=== PATIENT | male | born 1980 | race Hispanic/Latino ===

== ENCOUNTER 2018-11-11 18:18 | Inpatient (IN) | payer SELFPAY ==
[~2018-11-11] VITALS: Ht 180.3 cm; Wt 116.2 kg
[2018-11-11 18:45] LABS: BASOPHILS % (AUTO) 1.3 % (0.0-5.0); EOSINOPHILS % (AUTO) 0.8 % (0.0-8.0); HEMATOCRIT 46.8 % (42-54); LYMPHOCYTES % (AUTO) 37.1 % (21.0-51.0); MEAN CORPUSCULAR HEMOGLOBIN 35.7 pg (27.0-33.0); MEAN CORPUSCULAR HGB CONC 34.8 g/dL (32.0-36.0); MEAN CORPUSCULAR VOLUME 102.5 fL (79-99); MONOCYTES % (AUTO) 8.9 % (3.0-13.0); NEUTROPHILS % (AUTO) 51.9 % (40.0-77.0); NUCLEATED RED BLOOD CELLS 0.1 % (0.0-0.19); PLATELET COUNT (AUTO) 340 K/uL (130-400); RED BLOOD CELL COUNT(AUTO) 4.56 MIL/uL (4.50-6.20); RED CELL DISTRIBUTION WIDTH 13.5 % (11.0-15.5); WHITE BLOOD COUNT (AUTO) 11.1 K/uL (4.8-10.8)
[2018-11-11] MEDS ORDERED: KETOROLAC TROMETHAMINE 30MG/ML ONE (18:46)
[2018-11-11] MEDS ORDERED: MORPHINE SULFATE 4 MG/1ML SYG ONE ×2 (18:46→19:34)
[2018-11-11 18:58] LABS: CREATININE 0.8 mg/dL (0.5-1.5); POTASSIUM 3.2 mmol/L (3.5-5.1)
[2018-11-11 19:02] LABS: ALBUMIN 3.7 g/dL (3.5-5.0); BILIRUBIN,TOTAL 0.8 mg/dL (0.2-1.0); TOTAL PROTEIN, SERUM 8.4 g/dL (6.0-8.3)
[2018-11-11 19:45] LABS: APPEARANCE,URINE Clear (CLEAR); BILIRUBIN,URINE Negative (NEGATIVE); COLOR,URINE Yellow (YELLOW); GLUCOSE, URINE (UA) Negative (NEGATIVE); KETONES,URINE Negative (NEGATIVE); LEUKOCYTE ESTERASE ,URINE Negative (NEGATIVE); NITRATE,URINE Negative (NEGATIVE); OCCULT BLOOD,URINE Negative (NEGATIVE); PROTEIN,URINE Negative (NEGATIVE); UROBILINOGEN,URINE 0.2 mg/dL (0.2-1.0)
[2018-11-11] MEDS ORDERED: LIDOCAINE HCL-MPF 1% 2ML VIAL IVP PRN (19:45)
[2018-11-11] MEDS ORDERED: M.V.I. IV [ADULT] 10 ML, FOLIC ACID 1 MG, THIAMINE HCL 100 MG in SODIUM CHLORIDE 0.9% 1... IV SCH (19:45)
[2018-11-11] MEDS ORDERED: CHLORDIAZEPOXIDE HCL 25 MG CAP PO PRN ×4 (19:45)
[2018-11-11] MEDS ORDERED: PROMETHAZINE HCL 25 MG TABLET PO PRN (19:45)
[2018-11-11] MEDS ORDERED: POTASSIUM CHLORIDE 20MEQ/100ML 100 ML IV PRN (19:45)
[2018-11-11] MEDS ORDERED: ACETAMINOPHEN EXTRA STRENGTH 500 MG TABLET PO PRN (19:45)
[2018-11-11] MEDS ORDERED: LORAZEPAM 2 MG/ML 1 ML VIAL IVP PRN ×4 (19:45)
[2018-11-11] MEDS ORDERED: ONDANSETRON HCL 4 MG/2 ML VIAL IV PRN ×2 (19:45)
[2018-11-11] MEDS ORDERED: NITROGLYCERIN 0.4 MG SL TAB SL PRN (19:45)
[2018-11-11] MEDS: LACTATED RINGERS 1000ML 1,000 ML IV SCH (19:45)
[2018-11-11] MEDS ORDERED: HYDRALAZINE HCL 20 MG/ML VIAL IV PRN (20:00)
[2018-11-11 20:30] LABS: AMPHET/METH SCREEN,URINE NEGATIVE (NEGATIVE); BARBITURATE SCREEN, URINE NEGATIVE (NEGATIVE); BENZODIAZEPINES SCREEN,URINE NEGATIVE (NEGATIVE); CANNABINOID SCREEN,URINE POSITIVE (NEGATIVE); COCAINE SCREEN,URINE NEGATIVE (NEGATIVE); OPIATE SCREEN,URINE NEGATIVE (NEGATIVE); PHENCYCLIDINE SCREEN,URINE NEGATIVE (NEGATIVE)
[2018-11-11] MEDS: FAMOTIDINE/PF 20 MG/2 ML VIAL IV SCH (21:00)
[2018-11-11] MEDS ORDERED: THIAMINE HCL 100 MG/ML 2ML VIAL ONE (21:22)
[2018-11-11] MEDS ORDERED: FAMOTIDINE/PF 20 MG/2 ML VIAL IV ONE (21:27)
[2018-11-11 21:32] LABS: MAGNESIUM 1.8 mg/dL (1.80-2.40); PHOSPHORUS 2.7 mg/dL (2.5-4.9)
[2018-11-12 02:11] VITALS: BP 160/102
[2018-11-12] MEDS: MAGNESIUM 2GM PREMIX 50ML 50 ML IV PRN ×2 (02:28→07:02)
[2018-11-12] MEDS: MORPHINE SULFATE 2 MG/ML 1ML SYG IV PRN ×2 (03:29→09:38)
[2018-11-12] MEDS: LACTATED RINGERS 1000ML 1,000 ML IV SCH ×3 (03:45→13:29)
[2018-11-12 05:09] LABS: HEMATOCRIT 45.5 % (42-54); MEAN CORPUSCULAR HEMOGLOBIN 36.9 pg (27.0-33.0); MEAN CORPUSCULAR HGB CONC 35.8 g/dL (32.0-36.0); MEAN CORPUSCULAR VOLUME 103.1 fL (79-99); NUCLEATED RED BLOOD CELLS 0.1 % (0.0-0.19); PLATELET COUNT (AUTO) 281 K/uL (130-400); RED BLOOD CELL COUNT(AUTO) 4.41 MIL/uL (4.50-6.20); RED CELL DISTRIBUTION WIDTH 13.5 % (11.0-15.5); WHITE BLOOD COUNT (AUTO) 9.4 K/uL (4.8-10.8)
[2018-11-12 05:20] VITALS: BP 149/89
[2018-11-12 05:32] LABS: BAND NEUTROPHILS % (MANUAL) 2 % (0-2); BASOPHILS % (MANUAL) 2 % (0-2); LYMPHOCYTES % (MANUAL) 17 % (22-44); MAN.DIFF COMMENT-IMPRESSION MANUAL DIFFERENTIAL; MONOCYTES % (MANUAL) 7 % (2-9); SEGMENTED NEUTROPHILS % 72 % (40-70)
[2018-11-12 05:33] LABS: PLATELET MORPHOLOGY COMMENT ADEQUATE
[2018-11-12 05:41] LABS: ALBUMIN 3.5 g/dL (3.5-5.0); BILIRUBIN,TOTAL 1.2 mg/dL (0.2-1.0); CREATININE 0.8 mg/dL (0.5-1.5); MAGNESIUM 1.9 mg/dL (1.80-2.40); PHOSPHORUS 2.3 mg/dL (2.5-4.9); POTASSIUM 3.7 mmol/L (3.5-5.1); TOTAL PROTEIN, SERUM 8.5 g/dL (6.0-8.3)
[2018-11-12] MEDS ORDERED: M.V.I. IV [ADULT] 10 ML, FOLIC ACID 1 MG, THIAMINE HCL 100 MG in SODIUM CHLORIDE 0.9% 1... IV SCH ×2 (07:51→19:45)
[2018-11-12 08:00] VITALS: BP 145/89
[2018-11-12] MEDS: FAMOTIDINE/PF 20 MG/2 ML VIAL IV SCH ×2 (09:30→20:57)
[2018-11-12] MEDS: ENOXAPARIN SODIUM 30 MG/0.3 ML SQ SCH (09:30)
[2018-11-12 12:00] VITALS: BP 157/95
[2018-11-12] MEDS: MORPHINE SULFATE 4 MG/1ML SYG IV PRN ×2 (13:28→21:00)
--- NOTE | 2018-11-12 14:52 | NUR ---
INITIAL: Met with pt this afternoon to discuss dcp. Pt states that he is currently living with his parents and helping to take care of his mother who has Alzheimers. Pt states that he is independent w ambulation and ADLs. He does not drive and usually gets a ride where needed. Pt states that he feels safe and comfortable to [place] home at [place]. Provided him w community resource information, including AA. discussed importance of decreasing alcohol intake. Low income packet provided as well. Will continue to follow and wait for Md recommendations. Addendum: 11/12/18 at 1456 by MILLY SCOTT Amended: Links added.
[2018-11-12 16:00] VITALS: BP 144/73
[2018-11-12 19:05] VITALS: BP 155/92
[2018-11-13] VITALS (7 sets, daily range): BP systolic 126–160; BP diastolic 76–95
[2018-11-13] MEDS: MORPHINE SULFATE 2 MG/ML 1ML SYG IV PRN (03:59)
[2018-11-13] MEDS: LACTATED RINGERS 1000ML 1,000 ML IV SCH ×3 (04:49→21:29)
[2018-11-13 05:21] LABS: HEMATOCRIT 44.6 % (42-54); MEAN CORPUSCULAR HGB CONC 34.9 g/dL (32.0-36.0); MEAN CORPUSCULAR VOLUME 103.2 fL (79-99); PLATELET COUNT (AUTO) 293 K/uL (130-400); RED BLOOD CELL COUNT(AUTO) 4.32 MIL/uL (4.50-6.20); RED CELL DISTRIBUTION WIDTH 13.5 % (11.0-15.5); WHITE BLOOD COUNT (AUTO) 7.8 K/uL (4.8-10.8)
[2018-11-13 05:38] LABS: BILIRUBIN,DIRECT 0.4 mg/dL (0.0-0.3); BILIRUBIN,TOTAL 1.9 mg/dL (0.2-1.0); CREATININE 0.9 mg/dL (0.5-1.5); POTASSIUM 3.5 mmol/L (3.5-5.1); TOTAL PROTEIN, SERUM 7.7 g/dL (6.0-8.3)
[2018-11-13] MEDS: FAMOTIDINE/PF 20 MG/2 ML VIAL IV SCH ×2 (09:28→21:29)
[2018-11-13] MEDS: ENOXAPARIN SODIUM 30 MG/0.3 ML SQ SCH (09:29)
[2018-11-13] MEDS: MORPHINE SULFATE 4 MG/1ML SYG IV PRN ×2 (11:48→18:01)
[2018-11-13] MEDS ORDERED: PHARMACY COMMUNICATION MISC SCH (20:00)
[2018-11-13] MEDS ORDERED: M.V.I. IV [ADULT] 10 ML, FOLIC ACID 1 MG, THIAMINE HCL 100 MG in SODIUM CHLORIDE 0.9% 1... IV SCH (20:03)
[2018-11-14 01:20] VITALS: BP 133/86
[2018-11-14] MEDS: LACTATED RINGERS 1000ML 1,000 ML IV SCH ×2 (03:45→11:45)
[2018-11-14 04:00] VITALS: BP 133/86
[2018-11-14 05:43] LABS: BASOPHILS % (AUTO) 0.7 % (0.0-5.0); EOSINOPHILS % (AUTO) 2.9 % (0.0-8.0); HEMATOCRIT 45.3 % (42-54); LYMPHOCYTES % (AUTO) 34.6 % (21.0-51.0); MEAN CORPUSCULAR HEMOGLOBIN 35.8 pg (27.0-33.0); MEAN CORPUSCULAR HGB CONC 34.2 g/dL (32.0-36.0); MEAN CORPUSCULAR VOLUME 104.5 fL (79-99); MONOCYTES % (AUTO) 9.1 % (3.0-13.0); NEUTROPHILS % (AUTO) 52.7 % (40.0-77.0); PLATELET COUNT (AUTO) 276 K/uL (130-400); RED BLOOD CELL COUNT(AUTO) 4.34 MIL/uL (4.50-6.20); RED CELL DISTRIBUTION WIDTH 13.4 % (11.0-15.5); WHITE BLOOD COUNT (AUTO) 7.8 K/uL (4.8-10.8)
[2018-11-14 05:59] LABS: ALBUMIN 2.9 g/dL (3.5-5.0); BILIRUBIN,TOTAL 1.5 mg/dL (0.2-1.0); POTASSIUM 3.6 mmol/L (3.5-5.1); TOTAL PROTEIN, SERUM 7.7 g/dL (6.0-8.3)
[2018-11-14] MEDS: MORPHINE SULFATE 4 MG/1ML SYG IV PRN (06:39)
[2018-11-14 07:30] VITALS: BP 123/73
[2018-11-14] MEDS: FAMOTIDINE/PF 20 MG/2 ML VIAL IV SCH (09:12)
[2018-11-14] MEDS: ENOXAPARIN SODIUM 30 MG/0.3 ML SQ SCH (09:15)
[2018-11-14 11:00] VITALS: BP 137/94
[2018-11-14] MEDS ORDERED: TYL3 PO (14:16)
--- NOTE | 2018-11-14 14:50 | NUR ---
Nutrition intervention: Nutrition notification for alcohol use. Pt with new diagnosis of pancreatitis diet.JOHAN provided pt with pancreatitis diet education, printed materials provided and reviewed. Pt reports being a heavy drinker. Pt with no nutritional questions or concerns. Please consult RD as nutrition concerns arise. Recommendations: When medically feasible, advance diet therapy to soft, low fat diet therapy. Monitor po intake and tolerance. Please consult RD as nutrition concerns arise. Addendum: 11/14/18 at [address] Amended: Links added.
--- NOTE | 2018-11-14 18:45 | NUR ---
DISCHARGE INSTRUCTIONS GIVEN VIA TEACH BACK ALONG WITH FOLLOW-UP RECOMMENDATION AND PRESCRIPTION VERBALIZATION OF UNDERSTANDING RECEIVED. IV ACCESS REMOVED WITHOUT COMPLICATION. PATIENT IS TO LEAVE THE UNIT IN STABLE CONDITION WITH FAMILY PRESENT AT THE BEDSIDE DURING DISCHARGE.
--- NOTE | 2018-11-14 19:26 | NUR ---
LEFT THE UNIT IN STABLE CONDITION VIA W/C.
== END 2018-11-14 19:30 | disposition home or self-care (01) | DRG 440 ==
LOC: EDH 18:18 → EDHIP 18:19 → 3DH 11-12 01:40
PROVIDERS: ADMIT Internal Medicine; ATTEND Internal Medicine
DX: K85.90 Acute pancreatitis without necrosis or infection, unspecified (principal); F10.129 Alcohol abuse with intoxication, unspecified; I10 Essential (primary) hypertension; E87.6 Hypokalemia; Z68.34 Body mass index [BMI] 34.0-34.9, adult; E66.9 Obesity, unspecified; Y90.5 Blood alcohol level of 100-119 mg/100 ml; K76.0 Fatty (change of) liver, not elsewhere classified; Z83.3 Family history of diabetes mellitus; Z82.49 Family history of ischemic heart disease and other diseases of the circulatory system
CPT/HCPCS: 36415; 74176; 80048; 80053; 80061; 80076; 80305; 81003; 82150; 83690; 83735; 84100; 84484; 85025; 85027; 87040; 93005; G0378; G0480; J1650; J1885; J2270; J3411; J3475; J3480; J3490; J7030; J7120

== ENCOUNTER 2018-11-28 21:20 | Inpatient (IN) | payer SELFPAY ==
[~2018-11-28] VITALS: Ht 180.3 cm; Wt 114.7 kg
[~2018-11-28 21:20] MED LIST: TYL3 PO
[2018-11-28 21:39] LABS: BASOPHILS % (AUTO) 0.7 % (0.0-5.0); EOSINOPHILS % (AUTO) 1.5 % (0.0-8.0); HEMATOCRIT 46.4 % (42-54); LYMPHOCYTES % (AUTO) 46.2 % (21.0-51.0); MEAN CORPUSCULAR HEMOGLOBIN 36.5 pg (27.0-33.0); MEAN CORPUSCULAR VOLUME 104.5 fL (79-99); MONOCYTES % (AUTO) 7.8 % (3.0-13.0); NEUTROPHILS % (AUTO) 43.8 % (40.0-77.0); NUCLEATED RED BLOOD CELLS 0.1 % (0.0-0.19); PLATELET COUNT (AUTO) 318 K/uL (130-400); RED BLOOD CELL COUNT(AUTO) 4.44 MIL/uL (4.50-6.20); RED CELL DISTRIBUTION WIDTH 13.5 % (11.0-15.5); WHITE BLOOD COUNT (AUTO) 10.6 K/uL (4.8-10.8)
[2018-11-28 21:47] LABS: APPEARANCE,URINE Clear (CLEAR); BILIRUBIN,URINE Negative (NEGATIVE); COLOR,URINE Yellow (YELLOW); GLUCOSE, URINE (UA) Negative (NEGATIVE); KETONES,URINE Negative (NEGATIVE); LEUKOCYTE ESTERASE ,URINE Negative (NEGATIVE); NITRATE,URINE Negative (NEGATIVE); OCCULT BLOOD,URINE Negative (NEGATIVE); PROTEIN,URINE Negative (NEGATIVE)
[2018-11-28 21:54] LABS: ALBUMIN 3.4 g/dL (3.5-5.0); BILIRUBIN,TOTAL 0.8 mg/dL (0.2-1.0); TOTAL PROTEIN, SERUM 8.1 g/dL (6.0-8.3)
[2018-11-28 21:55] LABS: AMPHET/METH SCREEN,URINE NEGATIVE (NEGATIVE); BARBITURATE SCREEN, URINE NEGATIVE (NEGATIVE); BENZODIAZEPINES SCREEN,URINE NEGATIVE (NEGATIVE); CANNABINOID SCREEN,URINE POSITIVE (NEGATIVE); COCAINE SCREEN,URINE NEGATIVE (NEGATIVE); OPIATE SCREEN,URINE NEGATIVE (NEGATIVE); PHENCYCLIDINE SCREEN,URINE NEGATIVE (NEGATIVE)
[2018-11-28 21:57] LABS: INR 1.07 (0.85-1.15); PARTIAL THROMBOPLASTIN TIME 27.6 SEC (26.3-35.5); PROTHROMBIN TIME 11.2 SEC (9.6-11.6)
[2018-11-28 21:58] LABS: POTASSIUM 2.6 mmol/L (3.5-5.1)
[2018-11-28] MEDS ORDERED: THIAMINE HCL 100 MG/ML 2ML VIAL ONE (22:25)
[2018-11-28] MEDS ORDERED: POTASSIUM CHLORIDE 20 MEQ ERTAB PO ONE (22:28)
[2018-11-28] MEDS: SODIUM CHLORIDE 0.9% 1000ML 1,000 ML IV SCH (23:27)
[2018-11-28] MEDS ORDERED: LIDOCAINE HCL-MPF 1% 2ML VIAL IVP PRN (23:30)
[2018-11-28] MEDS ORDERED: LORAZEPAM 2 MG/ML 1 ML VIAL IVP PRN ×4 (23:30)
[2018-11-28] MEDS ORDERED: ONDANSETRON HCL 4 MG/2 ML VIAL IV PRN (23:30)
[2018-11-28] MEDS ORDERED: NITROGLYCERIN 0.4 MG SL TAB SL PRN (23:30)
[2018-11-28] MEDS ORDERED: PROMETHAZINE HCL 25 MG TABLET PO PRN (23:30)
[2018-11-28] MEDS ORDERED: CHLORDIAZEPOXIDE HCL 25 MG CAP PO PRN ×4 (23:30)
[2018-11-28] MEDS ORDERED: POTASSIUM CHLORIDE 20MEQ/100ML 100 ML IV PRN (23:30)
[2018-11-28] MEDS ORDERED: ACETAMINOPHEN EXTRA STRENGTH 500 MG TABLET PO PRN (23:30)
[2018-11-28] MEDS ORDERED: MAGNESIUM 2GM PREMIX 50ML 50 ML IV PRN (23:30)
[2018-11-28 23:44] LABS: PHOSPHORUS 2.9 mg/dL (2.5-4.9)
[2018-11-29] MEDS ORDERED: SODIUM CHLORIDE 0.9% 1000ML 1,000 ML IV STA (00:11)
[2018-11-29] MEDS: PANTOPRAZOLE SODIUM 80 MG in SODIUM CHLORIDE 0.9% 100 ML IV SCH ×3 (01:00→18:17)
[2018-11-29] MEDS ORDERED: HYDRALAZINE HCL 20 MG/ML VIAL IV PRN (02:30)
[2018-11-29 06:13] LABS: BASOPHILS % (AUTO) 1.3 % (0.0-5.0); EOSINOPHILS % (AUTO) 3.7 % (0.0-8.0); HEMATOCRIT 44.7 % (42-54); LYMPHOCYTES % (AUTO) 51.2 % (21.0-51.0); MEAN CORPUSCULAR HEMOGLOBIN 35.5 pg (27.0-33.0); MEAN CORPUSCULAR VOLUME 104.5 fL (79-99); MONOCYTES % (AUTO) 8.2 % (3.0-13.0); NEUTROPHILS % (AUTO) 35.6 % (40.0-77.0); PLATELET COUNT (AUTO) 337 K/uL (130-400); RED BLOOD CELL COUNT(AUTO) 4.27 MIL/uL (4.50-6.20); RED CELL DISTRIBUTION WIDTH 13.2 % (11.0-15.5); WHITE BLOOD COUNT (AUTO) 6.8 K/uL (4.8-10.8)
[2018-11-29 06:31] LABS: BILIRUBIN,TOTAL 0.7 mg/dL (0.2-1.0); MAGNESIUM 1.9 mg/dL (1.80-2.40); PHOSPHORUS 2.8 mg/dL (2.5-4.9); POTASSIUM 3.6 mmol/L (3.5-5.1); TOTAL PROTEIN, SERUM 7.5 g/dL (6.0-8.3)
[2018-11-29 06:36] LABS: CREATINE KINASE, TOTAL 139 U/L (21-232); MYOGLOBIN 53 ng/mL (10-92); TROPONIN I < 0.04 ng/mL (0.00-0.06)
[2018-11-29] MEDS ORDERED: THIAMINE HCL 100 MG/ML 2ML VIAL ONE (08:01)
[2018-11-29] MEDS ORDERED: M.V.I. IV [ADULT] 10 ML VIAL IV ONE (08:02)
[2018-11-29] MEDS: M.V.I. IV [ADULT] 10 ML, FOLIC ACID 1 MG, THIAMINE HCL 100 MG in SODIUM CHLORIDE 0.9% 1... IV SCH (09:00)
--- NOTE | 2018-11-29 10:10 | NUR ---
ADMISSION. FROM ER. PT AAO X 3 ,REVIEW . CARE ,AND PT . NOTED . OFFER NO C/O OF CHEST PAIN, PT WAS PLACED ON TELE MONITORING ,,, HOB UP. CAME IN WITH A BANANA BAG ,AND PROTONIX DRIP. . SET UP RATE PER ORDERS .. CALL LIGHT IN REACH..
[2018-11-29 10:27] LABS: CREATINE KINASE, TOTAL 143 U/L (21-232); MYOGLOBIN 32 ng/mL (10-92); TROPONIN I < 0.04 ng/mL (0.00-0.06)
[2018-11-29 11:00] VITALS: BP 152/86
--- NOTE | 2018-11-29 11:29 | NUR ---
ADIEL Reinaldo met with pt who states he has trailer in back yard of his father's home. Father Andre Boyer [phone], daughter Marely Crowe [phone]. Pt is self employed mechanical system technician, independent of ADLS, no DME or in home care services. Pt is seens at [facility] for care and meds. Denies dc needs, plan is home at ok Addendum: 11/29/18 at 1132 by LAURITA VICENTE Amended: Links added.
[2018-11-29] MEDS: SODIUM CHLORIDE 0.9% 1000ML 1,000 ML IV SCH ×2 (12:47→18:17)
[2018-11-29 20:44] VITALS: BP 163/99
[2018-11-29] MEDS: KETOROLAC TROMETHAMINE 15MG/ML IV PRN (22:14)
[2018-11-30] VITALS (19 sets, daily range): BP systolic 114–151; BP diastolic 72–97
[2018-11-30] MEDS: SODIUM CHLORIDE 0.9% 1000ML 1,000 ML IV SCH ×3 (00:52→15:27)
[2018-11-30 04:31] LABS: MEAN CORPUSCULAR HEMOGLOBIN 36.1 pg (27.0-33.0); MEAN CORPUSCULAR HGB CONC 34.4 g/dL (32.0-36.0); MEAN CORPUSCULAR VOLUME 104.8 fL (79-99); PLATELET COUNT (AUTO) 280 K/uL (130-400); RED CELL DISTRIBUTION WIDTH 13.3 % (11.0-15.5); WHITE BLOOD COUNT (AUTO) 8.5 K/uL (4.8-10.8)
[2018-11-30 04:55] LABS: POTASSIUM 3.9 mmol/L (3.5-5.1)
[2018-11-30] MEDS: PANTOPRAZOLE SODIUM 80 MG in SODIUM CHLORIDE 0.9% 100 ML IV SCH ×2 (07:00→07:56)
[2018-11-30] MEDS ORDERED: PROPOFOL 10 MG/ML 20ML VIAL IV ONE (07:00)
--- NOTE | 2018-11-30 07:45 | NUR ---
PT BACK FROM GI LAB, PT AAO X 3 NOTED NO C/O OF NAUSEA OR BLEEDING. POSTOP V/S STARTED , WITH CALL LIGHT IN REACH..
[2018-11-30] MEDS: LOSARTAN 50 MG TABLET PO SCH (12:35)
[2018-11-30] MEDS: HYDROCHLOROTHIAZIDE 25 MG TABLET PO SCH (12:35)
[2018-11-30] MEDS: KETOROLAC TROMETHAMINE 15MG/ML IV PRN (12:36)
[2018-11-30] MEDS: M.V.I. IV [ADULT] 10 ML, FOLIC ACID 1 MG, THIAMINE HCL 100 MG in SODIUM CHLORIDE 0.9% 1... IV SCH (15:41)
[2018-12-01 00:42] VITALS: BP 119/78
[2018-12-01] MEDS: KETOROLAC TROMETHAMINE 15MG/ML IV PRN (03:20)
[2018-12-01 04:17] VITALS: BP 133/79
[2018-12-01 04:21] LABS: BASOPHILS % (AUTO) 0.8 % (0.0-5.0); EOSINOPHILS % (AUTO) 2.7 % (0.0-8.0); HEMATOCRIT 44.7 % (42-54); LYMPHOCYTES % (AUTO) 29.1 % (21.0-51.0); MEAN CORPUSCULAR HEMOGLOBIN 35.8 pg (27.0-33.0); MEAN CORPUSCULAR HGB CONC 34.6 g/dL (32.0-36.0); MEAN CORPUSCULAR VOLUME 103.6 fL (79-99); MONOCYTES % (AUTO) 9.2 % (3.0-13.0); NEUTROPHILS % (AUTO) 58.2 % (40.0-77.0); PLATELET COUNT (AUTO) 306 K/uL (130-400); RED BLOOD CELL COUNT(AUTO) 4.31 MIL/uL (4.50-6.20); RED CELL DISTRIBUTION WIDTH 13.1 % (11.0-15.5); WHITE BLOOD COUNT (AUTO) 9.3 K/uL (4.8-10.8)
[2018-12-01 04:45] LABS: POTASSIUM 3.4 mmol/L (3.5-5.1)
[2018-12-01 08:00] VITALS: BP 126/77
[2018-12-01] MEDS ORDERED: POTASSIUM CHLORIDE 20MEQ/100ML 100 ML IV PRN (08:00)
[2018-12-01] MEDS ORDERED: POTASSIUM CHLORIDE 20 MEQ ERTAB PO PRN (08:00)
[2018-12-01] MEDS ORDERED: LIDOCAINE HCL-MPF 1% 2ML VIAL IVP PRN (08:00)
[2018-12-01] MEDS ORDERED: POTASSIUM CHLORIDE 10% ELIXIR 20 MEQ/15 ML UDCUP PO PRN (08:00)
[2018-12-01] MEDS ORDERED: POTASSIUM CHLORIDE 20 MEQ ERTAB PO SCH (08:30)
[2018-12-01] MEDS ORDERED: PANTOPRAZOLE SODIUM 40 MG TABLET.DR PO SCH (09:00)
[2018-12-01] MEDS: LOSARTAN 50 MG TABLET PO SCH (09:53)
[2018-12-01] MEDS: HYDROCHLOROTHIAZIDE 25 MG TABLET PO SCH (09:54)
[2018-12-01 12:00] VITALS: BP 152/95
--- NOTE | 2018-12-01 12:24 | NUR ---
PER DR. ACEVEDO OK TO D/C CANCEL BMP RX FOR BLOOD PRESSURE MEDICATIONS IN THE CHART
== END 2018-12-01 14:28 | disposition home or self-care (01) | DRG 377 ==
LOC: EDH 21:20 → EDHIP 21:21 → 4CH 11-29 10:10
PROVIDERS: ADMIT Internal Medicine; ATTEND Internal Medicine
PROC: 0DB98ZX Excision of Duodenum, Via Natural or Artificial Opening Endoscopic, Diagnostic (ICD-10-PCS; principal; 2018-11-30)
PROC: 0DB68ZX Excision of Stomach, Via Natural or Artificial Opening Endoscopic, Diagnostic (ICD-10-PCS; 2018-11-30)
PROC: 0DB38ZX Excision of Lower Esophagus, Via Natural or Artificial Opening Endoscopic, Diagnostic (ICD-10-PCS; 2018-11-30)
DX: K29.71 Gastritis, unspecified, with bleeding (principal); K85.20 Alcohol induced acute pancreatitis without necrosis or infection; E87.6 Hypokalemia; R07.89 Other chest pain; F10.229 Alcohol dependence with intoxication, unspecified; R79.89 Other specified abnormal findings of blood chemistry; Y90.8 Blood alcohol level of 240 mg/100 ml or more; F12.10 Cannabis abuse, uncomplicated; I10 Essential (primary) hypertension; E66.9 Obesity, unspecified; Z68.35 Body mass index [BMI] 35.0-35.9, adult; Z82.49 Family history of ischemic heart disease and other diseases of the circulatory system; Z83.3 Family history of diabetes mellitus; Z82.0 Family history of epilepsy and other diseases of the nervous system; Z80.9 Family history of malignant neoplasm, unspecified; Z71.41 Alcohol abuse counseling and surveillance of alcoholic
CPT/HCPCS: 36415; 43239; 71045; 80048; 80053; 80305; 81003; 82150; 82270; 82550; 83690; 83735; 83874; 84100; 84484; 85025; 85027; 85610; 85730; 88305; 93005; C9113; G0378; G0480; J1885; J2704; J3411; J3490; J7030

== ENCOUNTER 2022-09-26 21:40 | Emergency (ER) | payer OTHER ==
[~2022-09-26] VITALS: Ht 180.3 cm; Wt 138.9 kg
[2022-09-26 23:44] LABS: BASOPHILS % (AUTO) 0.5 % (0.0-5.0); EOSINOPHILS % (AUTO) 3.1 % (0.0-8.0); HEMATOCRIT 40.4 % (42-54); LYMPHOCYTES % (AUTO) 43.2 % (21.0-51.0); MEAN CORPUSCULAR HEMOGLOBIN 37.7 pg (27.0-33.0); MEAN CORPUSCULAR HGB CONC 34.7 g/dL (32.0-36.0); MEAN CORPUSCULAR VOLUME 108.9 fL (79-99); MONOCYTES % (AUTO) 10.3 % (3.0-13.0); NEUTROPHILS % (AUTO) 42.7 % (40.0-77.0); PLATELET COUNT (AUTO) 197 K/uL (130-400); RED BLOOD CELL COUNT(AUTO) 3.71 MIL/uL (4.50-6.20); RED CELL DISTRIBUTION WIDTH 14.7 % (11.0-15.5); WHITE BLOOD COUNT (AUTO) 9.5 K/uL (4.8-10.8)
[2022-09-26 23:45] LABS: APPEARANCE,URINE CLEAR (CLEAR); BILIRUBIN,URINE NEGATIVE (NEGATIVE); COLOR,URINE LIGHT-YELLOW (YELLOW); GLUCOSE, URINE (UA) NEGATIVE (NEGATIVE); KETONES,URINE NEGATIVE (NEGATIVE); LEUKOCYTE ESTERASE ,URINE NEGATIVE Leu/uL (NEGATIVE); NITRATE,URINE NEGATIVE (NEGATIVE); OCCULT BLOOD,URINE NEGATIVE (NEGATIVE); PH,URINE 6.5 (5.0-8.0); PROTEIN,URINE NEGATIVE (NEGATIVE); UROBILINOGEN,URINE 3 mg/dL (0.2-1.0)
[2022-09-27 00:03] LABS: ALBUMIN 2.8 g/dL (3.5-5.0); CREATININE 0.8 mg/dL (0.5-1.5); POTASSIUM 3.8 mmol/L (3.5-5.1); TOTAL PROTEIN, SERUM 9.3 g/dL (6.0-8.3)
[2022-09-27 00:13] LABS: B-TYPE NATRIURETIC PEPTIDE 95 pg/mL (0-100)
[2022-09-27] MEDS ORDERED: LEVO750T68 PO (03:33)
[2022-09-27] MEDS ORDERED: METR375C2 PO (03:33)
[2022-09-27 03:37] VITALS: BP 135/70
== END 2022-09-27 03:44 | disposition home or self-care (01) ==
LOC: EDH 21:40
DX: K57.92 Diverticulitis of intestine, part unspecified, without perforation or abscess without bleeding (principal); F10.20 Alcohol dependence, uncomplicated; K76.0 Fatty (change of) liver, not elsewhere classified; R18.8 Other ascites; G47.33 Obstructive sleep apnea (adult) (pediatric); E11.9 Type 2 diabetes mellitus without complications; E78.00 Pure hypercholesterolemia, unspecified; I10 Essential (primary) hypertension; K85.90 Acute pancreatitis without necrosis or infection, unspecified
CPT/HCPCS: 36415; 71045; 74176; 80053; 81003; 83880; 84484; 85025; 93005; 93970

== ENCOUNTER 2022-12-10 19:59 | Emergency (ER) | payer OTHER ==
[~2022-12-10] VITALS: Ht 177.8 cm; Wt 135.2 kg
[~2022-12-10 19:59] MED LIST changes: +LEVO750T68 PO; +METR375C2 PO
[2022-12-10] MEDS ORDERED: CLINDAMYCIN IVPB 600MG/50ML 50 ML IV SCH (21:00)
[2022-12-10] MEDS ORDERED: CLINDAMYCIN 300 MG/50 ML IV ONE (21:09)
[2022-12-10 21:11] LABS: APPEARANCE,URINE CLOUDY (CLEAR); BILIRUBIN,URINE 2 mg/dL (NEGATIVE); COLOR,URINE DARK-YELLOW (YELLOW); GLUCOSE, URINE (UA) 30 mg/dL (NEGATIVE); KETONES,URINE 5 mg/dL (NEGATIVE); LEUKOCYTE ESTERASE ,URINE NEGATIVE Leu/uL (NEGATIVE); NITRATE,URINE NEGATIVE (NEGATIVE); OCCULT BLOOD,URINE NEGATIVE (NEGATIVE); PROTEIN,URINE 100 mg/dL (NEGATIVE); UROBILINOGEN,URINE 12 mg/dL (0.2-1.0)
[2022-12-10 21:16] LABS: BASOPHILS % (AUTO) 0.4 % (0.0-5.0); EOSINOPHILS % (AUTO) 2.4 % (0.0-8.0); HEMATOCRIT 39.3 % (42-54); LYMPHOCYTES % (AUTO) 41.3 % (21.0-51.0); MEAN CORPUSCULAR HEMOGLOBIN 38.1 pg (27.0-33.0); MEAN CORPUSCULAR HGB CONC 34.9 g/dL (32.0-36.0); MEAN CORPUSCULAR VOLUME 109.2 fL (79-99); MONOCYTES % (AUTO) 9.7 % (3.0-13.0); NEUTROPHILS % (AUTO) 45.9 % (40.0-77.0); PLATELET COUNT (AUTO) 244 K/uL (130-400); RED CELL DISTRIBUTION WIDTH 14.3 % (11.0-15.5); WHITE BLOOD COUNT (AUTO) 12.4 K/uL (4.8-10.8)
[2022-12-10 21:23] LABS: MUCUS,URINE MANY LPF (None Seen); SQUAMOUS EPITHELIAL CELL,UR RARE /HPF (0-2)
[2022-12-10 21:25] LABS: INR 1.36 (0.85-1.15); PROTHROMBIN TIME 14.6 SEC (9.6-11.6)
[2022-12-10 21:33] LABS: POTASSIUM 3.2 mmol/L (3.5-5.1)
[2022-12-10 21:42] LABS: ALBUMIN 2.7 g/dL (3.5-5.0); TOTAL PROTEIN, SERUM 9.9 g/dL (6.0-8.3)
[2022-12-10] MEDS ORDERED: DOXY-469 PO (21:58)
[2022-12-10] MEDS ORDERED: CEPH500B PO (21:58)
[2022-12-10] MEDS ORDERED: POTASSIUM BICARB/CIT AC 25 MEQ TABLET.EFF PO ONE (22:00)
[2022-12-10] MEDS ORDERED: IOHEXOL 350 MG/ML 100ML INFUS..BTL IV ONE (22:53)
[2022-12-11] MEDS ORDERED: DIAZ10TA4 PO (00:21)
[2022-12-11 00:35] VITALS: BP 115/59
== END 2022-12-11 00:35 | disposition home or self-care (01) ==
LOC: EDH 19:59
DX: D72.829 Elevated white blood cell count, unspecified (principal); R94.5 Abnormal results of liver function studies; K70.9 Alcoholic liver disease, unspecified; M79.604 Pain in right leg; M79.605 Pain in left leg; M79.89 Other specified soft tissue disorders; Z79.899 Other long term (current) drug therapy; Z98.890 Other specified postprocedural states
CPT/HCPCS: 99285; 74177; 93970; 96374; 82550; 84484; 80053; 83690; 85025; 85610; 85730; 87040 ×2; 87088; 83605; 81001; 36415; J3490; Q9967

== ENCOUNTER 2024-03-06 22:05 | Emergency (ER) | payer BC ==
[~2024-03-06] VITALS: Ht 180.3 cm; Wt 124.7 kg
[~2024-03-06 22:05] MED LIST changes: +DIAZ10TA4 PO
[2024-03-06] MEDS: ACETAMINOPHEN 500 MG TABLET PO ONE (22:29)
[2024-03-06 22:56] VITALS: BP 139/79; PULSE 68; RESP 20; O2SAT 97
[2024-03-06] MEDS ORDERED: IBUP-2077 PO (23:05)
== END 2024-03-06 23:34 | disposition home or self-care (01) ==
LOC: EDH 22:05
DX: S93.401A Sprain of unspecified ligament of right ankle, initial encounter (principal); E11.9 Type 2 diabetes mellitus without complications; E78.00 Pure hypercholesterolemia, unspecified; I10 Essential (primary) hypertension; Z79.899 Other long term (current) drug therapy; W01.0XXA Fall on same level from slipping, tripping and stumbling without subsequent striking against object, initial encounter; Y93.89 Activity, other specified; Y92.34 Swimming pool (public) as the place of occurrence of the external cause; Y99.8 Other external cause status
CPT/HCPCS: 29515; 73610